=== PATIENT | female | born 1955 | race Caucasian/White ===

== ENCOUNTER → 2024-12-25 | Day surgery (SDC) | payer MEDICARE ==
[2024-12-16 15:49] LABS: BASOPHILS % 0.3 % (0.0-1.0); EOSINOPHILS % 0.0 % (0.0-6.0); LYMPHOCYTES % 14.4 % (18.0-39.1); MONOCYTES % 9.2 % (4.4-11.3); NEUTROPHILS % 75.8 % (38.7-80.0); RED CELL DISTRIBUTION WIDTH 14.9 % (11.7-14.4)
[~2024-12-25] MED LIST: ALLOPURINOL100 MG PO; ALLOPURINOL300 MG PO; AMLODIPINE BESYL5 MG PO; ATENOLOL-CHLOR1 EACH PO; CALCIUM ACETAT667 MG PO; FEMARA2.5 MG PO; FENTANYL CITRATE/PF 100MCG/2 ML INJ ONE; LIDOCAINE HCL 2% LOCAL INJ 5 ML SDV VIAL INJ ONE; LINZESS145 MCG PO; LISINOPRIL40 MG PO; METFORMIN HCL500 MG PO; MIDAZOLAM HCL 2 MG/2 ML VIAL ONE; OMEPRAZOLE40 MG PO; PROPOFOL IV EMULSION 10 MG/ML 20 ML VIAL ONE; SIMVASTATIN40 MG PO; TRICOR48 MG PO; TRULANCE3 MG; VITAMIN D31250 MCG PO
[2024-12-25] MEDS: CYCLOPENTOLATE HCL 2% OPTH SOLN 2 ML BTL OP ONE (07:57)
[2024-12-25] MEDS: GATIFLOXACIN(OPTH) 5 ML LIQD ONE (07:57)
[2024-12-25] MEDS: PHENYLEPHRINE HCL 2 ML DROPS ONE (07:57)
[2024-12-25] MEDS: LACTATED RINGER'S 1,000 ML ONE (07:58)
[2024-12-25 11:28] VITALS: TEMP 97.6
[2024-12-25 11:55] VITALS: BP 120/68; PULSE 72; RESP 16; O2SAT 98
[2024-12-25] MEDS: ACETAMINOPHEN 1000 MG/100 ML 100 ML IV ONE (11:55)
== END | disposition home or self-care (01) ==
LOC: OR 07:02
PROVIDERS: ATTEND Ophthalmology
DX: H25.12 Age-related nuclear cataract, left eye (principal); I10 Essential (primary) hypertension; E11.9 Type 2 diabetes mellitus without complications; Z79.84 Long term (current) use of oral hypoglycemic drugs; E78.5 Hyperlipidemia, unspecified; E66.01 Morbid (severe) obesity due to excess calories; K21.9 Gastro-esophageal reflux disease without esophagitis; F32.A Depression, unspecified; Z01.812 Encounter for preprocedural laboratory examination; Z79.899 Other long term (current) drug therapy; Z91.040 Latex allergy status
CPT/HCPCS: 36415 ×2; 66984; 67010; 82948; 85025; J0131; J2003; J2250; J2704; J3010; J7121; V2632